=== PATIENT | female | born 1970 | race Caucasian/White ===

== ENCOUNTER → 2020-07-21 | Outpatient (CLI) | payer OTHER ==
[2020-07-21 21:10] LABS: Basophils # (A) 0.06 X 10*3/uL (0.00-0.10); Basophils % (A) 0.6 %; Eosinophils # (A) 0.28 X 10*3/uL (0.04-0.35); Eosinophils % (A) 2.8 %; HCT 45.1 % (37.2-46.3); HGB 14.4 g/dL (12.0-15.0); Lymphocytes # (A) 2.12 X 10*3/uL (0.90-5.00); Lymphocytes % (A) 21.3 %; MCH 30.3 pg (27.0-32.0); MCHC 31.9 g/dL (32.0-37.0); MCV 94.9 fL (80.0-97.0); Mean Platelet Volume 10.7 fL (9.5-12.2); Neutrophils # (A) 6.85 X 10*3/uL (1.80-7.70); Platelet Count 338 X 10*3/uL (140-440); RBC 4.75 X 10*6/uL (4.10-5.20); RDW 13.8 % (11.5-14.5); WBC 9.94 X 10*3/uL (4.50-10.00)
[2020-07-21 22:11] LABS: Gliadin AB IgA, Deaminated NEGATIVE (NEGATIVE); Gliadin AB IgA, Unit 0.4 U/mL; Gliadin AB IgG, Deaminated NEGATIVE (NEGATIVE)
[2020-07-21 22:14] LABS: African American GFR (CKD) 85.2 (60.0-200.0); Albumin 4.7 g/dL (3.80-4.90); Albumin/Globulin Ratio 2.04 (1.60-3.17); Anion Gap 7.3 mmol/L (4.00-12.00); BUN/Creat Ratio 15.56 Ratio (12.00-20.00); C Reactive Protein 0.7 mg/dL (0.0-0.8); Calcium 9.4 mg/dL (8.7-10.3); Carbon Dioxide 26.7 mmol/L (21.6-31.8); Globulin 2.3 g/dL (1.6-3.3); Non-African American GFR(CKD) 73.5 (60.0-200.0); Potassium 4.6 mmol/L (3.5-5.5); Total Bilirubin 0.3 mg/dL (0.3-1.2)
[2020-07-21 23:02] LABS: Erythrocyte Sedimentation Rate 8 mm/Hr (0-30)
== END | disposition home or self-care (01) ==
LOC: LABWHC1 12:50 → EDBD 12:50
PROVIDERS: ATTEND Nurse Practitioner
DX: K52.9 Noninfective gastroenteritis and colitis, unspecified (principal)
CPT/HCPCS: 36415; 80053; 83516; 85025; 85652; 86140